=== PATIENT | female | born 1980 | race Two or more races ===

== ENCOUNTER 2018-11-15 12:20 | Emergency (ER) | payer OTHER ==
[~2018-11-15] VITALS: Ht 162.6 cm; Wt 69.4 kg
[2018-11-15 12:25] VITALS: BP 146/93; Ht 162.6 cm; Wt 69.4 kg
== END 2018-11-15 14:59 | disposition home or self-care (01) ==
LOC: ED 12:20
DX: S06.0X9A Concussion with loss of consciousness of unspecified duration, initial encounter (principal); S13.4XXA Sprain of ligaments of cervical spine, initial encounter; Z88.1 Allergy status to other antibiotic agents; Z98.890 Other specified postprocedural states; V89.2XXA Person injured in unspecified motor-vehicle accident, traffic, initial encounter; Y93.I9 Activity, other involving external motion; Y92.413 State road as the place of occurrence of the external cause; Y99.8 Other external cause status